=== PATIENT | male | born 1975 | race Caucasian/White ===

== ENCOUNTER → 2018-12-13 | Outpatient (CLI) | payer BC ==
[2018-12-13 15:14] LABS: ANION GAP 11 mmol/L (7-16); BLOOD UREA NITROGEN 13 mg/dL (9-20); CALCIUM 9.3 mg/dL (8.4-10.2); CARBON DIOXIDE 27 mmol/L (22-30); CHLORIDE 98 mmol/L (98-107); CHOLESTEROL 231 mg/dL (120-200); CHOLESTEROL RISK RATIO 9.2; CREATININE, serum 0.68 mg/dL (0.66-1.25); GLUCOSE 286 mg/dL (74-106); HDL CHOLESTEROL 25 mg/dL; POTASSIUM 4.4 mmol/L (3.4-5.0); SODIUM 135 mmol/L (137-145)
[2018-12-13 15:49] LABS: TRIGLYCERIDE 2634 mg/dL
[2018-12-14 03:54] LABS: URINE MICROALBUMIN 31.8 mg/dL (0.0-1.7)
[2018-12-17 09:10] LABS: ALANINE AMINOTRANSFERASE 35 U/L (21-72); AST,SGOT 31 U/L (15-37)
== END ==
LOC: ZCOL.LAB 14:36
PROVIDERS: Family Medicine
DX: E11.9 Type 2 diabetes mellitus without complications (principal)

== ENCOUNTER → 2019-01-17 | Outpatient (CLI) | payer BC ==
[2019-01-17 14:25] LABS: ALANINE AMINOTRANSFERASE 32 U/L (21-72); ALBUMIN 4.5 gm/dL (3.5-5.0); ALKALINE PHOSPHATASE 132 U/L (50-136); ANION GAP 12 mmol/L (7-16); AST,SGOT 27 U/L (15-37); BILIRUBIN,TOTAL 0.5 mg/dL (0.0-1.0); BLOOD UREA NITROGEN 11 mg/dL (9-20); CALCIUM 9.8 mg/dL (8.4-10.2); CARBON DIOXIDE 27 mmol/L (22-30); CHLORIDE 97 mmol/L (98-107); CHOLESTEROL 143 mg/dL (120-200); CREATINE KINASE 39 U/L (55-170); POTASSIUM 4.1 mmol/L (3.4-5.0); SODIUM 137 mmol/L (137-145); TOTAL PROTEIN 7.7 gm/dL (6.4-8.2)
[2019-01-17 14:34] LABS: CHOLESTEROL RISK RATIO 5.1; GLUCOSE 361 mg/dL (74-106)
[2019-01-17 14:37] LABS: TRIGLYCERIDE 684 mg/dL
== END ==
LOC: ZCOL.LAB 11:52
PROVIDERS: Family Medicine
DX: E78.5 Hyperlipidemia, unspecified (principal); E11.9 Type 2 diabetes mellitus without complications; E78.1 Pure hyperglyceridemia

== ENCOUNTER 2019-04-01 18:01 | Emergency (ER) | payer BC ==
[~2019-04-01] VITALS: Ht 170.2 cm; Wt 90.9 kg
[2019-04-01 18:20] VITALS: TEMP 97.7
[2019-04-01] MEDS ORDERED: GLUCOPHAGE1000 MG PO (19:00)
[2019-04-01] MEDS ORDERED: AMARYL1 MG (19:00)
[2019-04-01] MEDS ORDERED: LIPITOR20 MG (19:01)
[2019-04-01] MEDS ORDERED: ZOLOFT20 MG/ML (19:02)
[2019-04-01] MEDS ORDERED: PRINIVIL2.5 MG PO (19:02)
[2019-04-01] MEDS ORDERED: FLEXERIL 1010 MG/TAB PO (21:39)
[2019-04-01 22:00] VITALS: BP 162/92; PULSE 105
== END 2019-04-01 22:00 | disposition home or self-care (01) ==
LOC: COL.ER 18:01
DX: S39.011A Strain of muscle, fascia and tendon of abdomen, initial encounter (principal); S20.212A Contusion of left front wall of thorax, initial encounter; I10 Essential (primary) hypertension; E11.9 Type 2 diabetes mellitus without complications; Z87.891 Personal history of nicotine dependence; Z79.84 Long term (current) use of oral hypoglycemic drugs; V49.9XXA Car occupant (driver) (passenger) injured in unspecified traffic accident, initial encounter
CPT/HCPCS: J1885

== ENCOUNTER → 2019-09-30 | Outpatient (CLI) | payer BC ==
[~2019-09-30] MED LIST: AMARYL1 MG; FLEXERIL 1010 MG/TAB PO; GLUCOPHAGE1000 MG PO; LIPITOR20 MG; PRINIVIL2.5 MG PO; ZOLOFT20 MG/ML
[2019-09-30 11:54] LABS: BASO # 0.1 (0.0-0.2); BASO % 0.8 % (0.0-2.0); EOS # 0.2 (0.0-0.7); EOS % 2.5 % (0-4.0); GRAN # 4.6 (1.4-6.5); HEMATOCRIT 45.7 % (42.0-52.0); HEMOGLOBIN 15.7 g/dl (13.5-18.0); LYMPH # 2.5 (1.2-3.4); LYMPH % 31.6 % (20.0-51.0); MEAN CELL VOLUME 82 fl (80.0-100.0); MEAN CORPUSCULAR HEMOGLOBIN 28 pg (27.0-31.0); MEAN CORPUSCULAR HGB CONC 34 g/dl (33.0-37.0); MEAN PLATELET VOLUME 10.4 fl (7.4-10.4); MONO # 0.5 (0.1-0.6); MONO % 5.8 % (1.7-9.3); PLATELET COUNT 259 K/mm3 (130-400); RED BLOOD COUNT 5.56 M/mm3 (4.20-5.60); REDCELL DISTRIBUTION WIDTH-CV 12.8 % (11.5-14.5)
[2019-09-30 12:08] LABS: ALBUMIN 4.8 gm/dL (3.5-5.0); BILIRUBIN,TOTAL 0.6 mg/dL (0.0-1.0); CALCIUM 9.9 mg/dL (8.4-10.2); CREATININE, serum 0.73 (0.66-1.25); POTASSIUM 4.1 mmol/L (3.4-5.0); TOTAL PROTEIN 8.1 gm/dL (6.4-8.2)
== END ==
LOC: COL.RAD 10:55
PROVIDERS: Family Medicine
DX: E11.9 Type 2 diabetes mellitus without complications (principal); R10.11 Right upper quadrant pain

== ENCOUNTER → 2019-10-01 | Outpatient (CLI) | payer BC ==
[2019-10-01 17:13] LABS: COLLECTION METHOD CLEAN CATCH
[2019-10-01 17:30] LABS: PH 5 (5-8); SQUAMOUS EPITHELIAL None Seen /hpf; URINE APPEARANCE Clear; URINE BACTERIA None Seen /hpf; URINE BILIRUBIN Negative (NEGATIVE); URINE BLOOD Negative (NEGATIVE); URINE COLOR Yellow; URINE GLUCOSE 3+ (NEGATIVE); URINE KETONE Trace (NEGATIVE); URINE LEUKOCYTE ESTERASE Negative (NEGATIVE); URINE NITRATE Negative (NEGATIVE); URINE PROTEIN(semi-quant) 1+ (NEGATIVE); URINE RBC 0-2 /hpf; URINE UROBILINOGEN Negative (NEGATIVE)
== END ==
LOC: ZCOL.LAB 17:08
PROVIDERS: Family Medicine
DX: R10.9 Unspecified abdominal pain (principal)

== ENCOUNTER 2019-10-15 14:53 | Emergency (ER) | payer BC ==
[~2019-10-15] VITALS: Ht 170.2 cm; Wt 86.4 kg
[~2019-10-15 14:53] MED LIST changes: -LIPITOR20 MG; +LIPITOR20 MG PO
[2019-10-15 15:06] VITALS: TEMP 97.5
[2019-10-15] MEDS ORDERED: ZOLOFT 50MG50 MG PO (18:05)
[2019-10-15 18:17] LABS: BASO # 0.1 (0.0-0.2); BASO % 1.1 % (0.0-2.0); EOS # 0.2 (0.0-0.7); GRAN % 65.8 % (42.2-75.2); HEMATOCRIT 44.2 % (42.0-52.0); HEMOGLOBIN 14.8 g/dl (13.5-18.0); LYMPH # 1.9 (1.2-3.4); LYMPH % 25.4 % (20.0-51.0); MEAN CELL VOLUME 83 fl (80.0-100.0); MEAN CORPUSCULAR HEMOGLOBIN 28 pg (27.0-31.0); MEAN CORPUSCULAR HGB CONC 34 g/dl (33.0-37.0); MEAN PLATELET VOLUME 10.8 fl (7.4-10.4); MONO # 0.4 (0.1-0.6); MONO % 5.3 % (1.7-9.3); PLATELET COUNT 222 K/mm3 (130-400); RED BLOOD COUNT 5.35 M/mm3 (4.20-5.60); REDCELL DISTRIBUTION WIDTH-CV 12.9 % (11.5-14.5)
[2019-10-15 18:32] LABS: STREP SCREEN NEGATIVE
[2019-10-15 18:32] LABS: ALANINE AMINOTRANSFERASE 11 U/L (21-72); ALBUMIN 4.5 gm/dL (3.5-5.0); ALKALINE PHOSPHATASE 112 U/L (50-136); ANION GAP 13 mmol/L (7-16); AST,SGOT 20 U/L (15-37); BILIRUBIN,TOTAL 0.6 mg/dL (0.0-1.0); BLOOD UREA NITROGEN 10 mg/dL (9-20); CALCIUM 9.3 mg/dL (8.4-10.2); CARBON DIOXIDE 25 mmol/L (22-30); CHLORIDE 97 mmol/L (98-107); CREATININE, serum 0.63 (0.66-1.25); GLUCOSE 356 mg/dL (74-106); LIPASE 62 U/L (23-300); POTASSIUM 3.8 mmol/L (3.4-5.0); SODIUM 135 mmol/L (137-145); TOTAL PROTEIN 7.8 gm/dL (6.4-8.2)
[2019-10-15 18:33] LABS: C-REACTIVE PROTEIN < 0.5 mg/dL (0.0-0.9)
[2019-10-15 19:19] LABS: COLLECTION METHOD CLEAN CATCH
[2019-10-15 19:34] LABS: PH 7 (5-8); SQUAMOUS EPITHELIAL None Seen /hpf; URINE APPEARANCE Clear; URINE BACTERIA None Seen /hpf; URINE BILIRUBIN Negative (NEGATIVE); URINE BLOOD Negative (NEGATIVE); URINE COLOR Straw; URINE GLUCOSE 3+ (NEGATIVE); URINE KETONE 1+ (NEGATIVE); URINE LEUKOCYTE ESTERASE Negative (NEGATIVE); URINE NITRATE Negative (NEGATIVE); URINE PROTEIN(semi-quant) Negative (NEGATIVE); URINE RBC 0-2 /hpf; URINE UROBILINOGEN Negative (NEGATIVE)
[2019-10-15] MEDS ORDERED: NOVOLOG FLEX100 U/ML SQ (20:16)
[2019-10-15 20:33] VITALS: BP 137/97; PULSE 79
== END 2019-10-15 20:35 | disposition home or self-care (01) ==
LOC: COL.ER 14:53
PROVIDERS: Emergency Medicine
DX: E11.65 Type 2 diabetes mellitus with hyperglycemia (principal); J06.9 Acute upper respiratory infection, unspecified; R10.11 Right upper quadrant pain; Z79.84 Long term (current) use of oral hypoglycemic drugs
CPT/HCPCS: J1815; J1885; J7030

== ENCOUNTER 2020-08-01 19:08 | Emergency (ER) | payer BC ==
[~2020-08-01] VITALS: Ht 170.2 cm; Wt 86.4 kg
[~2020-08-01 19:08] MED LIST changes: +NOVOLOG FLEX100 U/ML SQ; +ZOLOFT 50MG50 MG PO
[2020-08-01 19:16] VITALS: TEMP 97.7
[2020-08-01 20:01] LABS: BASO # 0.1 (0.0-0.2); BASO % 1.1 % (0.0-2.0); EOS # 0.2 (0.0-0.7); EOS % 2.5 % (0-4.0); GRAN # 4.4 (1.4-6.5); HEMATOCRIT 42.6 % (42.0-52.0); HEMOGLOBIN 15.2 g/dl (13.5-18.0); LYMPH # 2.4 (1.2-3.4); LYMPH % 31.8 % (20.0-51.0); MEAN CELL VOLUME 82 fl (80.0-100.0); MEAN CORPUSCULAR HEMOGLOBIN 29 pg (27.0-31.0); MEAN CORPUSCULAR HGB CONC 36 g/dl (33.0-37.0); MEAN PLATELET VOLUME 10.9 fl (7.4-10.4); MONO # 0.5 (0.1-0.6); MONO % 6.3 % (1.7-9.3); PLATELET COUNT 239 K/mm3 (130-400); RED BLOOD COUNT 5.17 M/mm3 (4.20-5.60); REDCELL DISTRIBUTION WIDTH-CV 12.8 % (11.5-14.5)
[2020-08-01 20:03] LABS: COLLECTION METHOD CLEAN CATCH
[2020-08-01 20:08] LABS: PH 5 (5-8); SQUAMOUS EPITHELIAL 0-2 /hpf; URINE APPEARANCE Clear; URINE BACTERIA None Seen /hpf; URINE BILIRUBIN Negative (NEGATIVE); URINE BLOOD Negative (NEGATIVE); URINE COLOR Yellow; URINE GLUCOSE 3+ (NEGATIVE); URINE KETONE 1+ (NEGATIVE); URINE LEUKOCYTE ESTERASE Negative (NEGATIVE); URINE NITRATE Negative (NEGATIVE); URINE PROTEIN(semi-quant) 2+ (NEGATIVE); URINE RBC 0-2 /hpf; URINE UROBILINOGEN Negative (NEGATIVE)
[2020-08-01 20:12] LABS: ALANINE AMINOTRANSFERASE 136 U/L (4-49); ALBUMIN 4.5 gm/dL (3.5-5.0); ALKALINE PHOSPHATASE 152 U/L (50-136); ANION GAP 15 mmol/L (7-16); AST,SGOT 112 U/L (15-37); BILIRUBIN,TOTAL 0.9 mg/dL (0.0-1.0); BLOOD UREA NITROGEN 14 mg/dL (9-20); CALCIUM 9.5 mg/dL (8.4-10.2); CARBON DIOXIDE 20 mmol/L (22-30); CHLORIDE 100 mmol/L (98-107); CREATININE, serum 0.81 (0.66-1.25); GLUCOSE 333 mg/dL (74-106); LIPASE 61 U/L (23-300); POTASSIUM 4.3 mmol/L (3.4-5.0); SODIUM 135 mmol/L (137-145); TOTAL PROTEIN 7.9 gm/dL (6.4-8.2)
[2020-08-01 20:31] LABS: TROPONIN-I < 0.012 ng/mL (0.000-0.035)
[2020-08-01] MEDS ORDERED: PERCOCET 325 MG1 TA2 PO (23:16)
[2020-08-01 23:25] VITALS: BP 172/109; PULSE 88
== END 2020-08-01 23:25 | disposition home or self-care (01) ==
LOC: COL.ER 19:08
PROVIDERS: Physician Assistant
DX: R10.11 Right upper quadrant pain (principal); E11.9 Type 2 diabetes mellitus without complications; Z79.4 Long term (current) use of insulin; Z79.899 Other long term (current) drug therapy; Z79.84 Long term (current) use of oral hypoglycemic drugs
CPT/HCPCS: J1170; J1815; J3010; J7030; Q9967

== ENCOUNTER 2021-11-28 15:03 | Emergency (ER) | payer BC ==
[~2021-11-28] VITALS: Ht 175.3 cm; Wt 84.1 kg
[~2021-11-28 15:03] MED LIST changes: +PERCOCET 325 MG1 TA2 PO
[2021-11-28 16:01] VITALS: BP 159/118; TEMP 98.4
[2021-11-28 16:56] LABS: BASO # 0.1 K/mm3 (0.0-0.2); BASO % 1.1 % (0.0-2.0); EOS # 0.1 K/mm3 (0.0-0.7); EOS % 1.9 % (0.0-4.0); GRAN # 3.8 K/mm3 (1.4-6.5); GRAN % 54.3 % (42.2-75.2); HEMATOCRIT 43.2 % (42.0-52.0); HEMOGLOBIN 15.7 g/dl (13.5-18.0); LYMPH # 2.6 K/mm3 (1.2-3.4); LYMPH % 36.5 % (20.0-51.0); MEAN CELL VOLUME 82 fl (80.0-100.0); MEAN CORPUSCULAR HEMOGLOBIN 30 pg (27-31); MEAN CORPUSCULAR HGB CONC 36 g/dl (33.0-37.0); MEAN PLATELET VOLUME 10.1 fl (7.4-10.4); MONO # 0.4 K/mm3 (0.1-0.6); MONO % 5.9 % (1.7-9.3); PLATELET COUNT 286 K/mm3 (130-400); RED BLOOD COUNT 5.25 M/mm3 (4.20-5.60); REDCELL DISTRIBUTION WIDTH-CV 12.8 % (11.5-14.5)
[2021-11-28 18:11] LABS: ALBUMIN 4.4 gm/dL (3.5-5.0); BILIRUBIN,TOTAL 0.5 mg/dL (0.2-1.2); CALCIUM 9.1 mg/dL (8.4-10.2); CREATININE, serum 0.82 mg/dL (0.72-1.25); POTASSIUM 3.8 mmol/L (3.5-4.5); TOTAL PROTEIN 7.4 gm/dL (6.2-8.1)
[2021-11-28] MEDS ORDERED: FLEXERIL 1010 MG/TAB PO (18:59)
[2021-11-28 19:05] VITALS: PULSE 85
== END 2021-11-28 19:05 | disposition home or self-care (01) ==
LOC: COL.ER 15:03
PROVIDERS: Emergency Medicine; Physician Assistant
DX: M79.602 Pain in left arm (principal); M25.552 Pain in left hip; M54.9 Dorsalgia, unspecified; R51.9 Headache, unspecified; E11.9 Type 2 diabetes mellitus without complications; I10 Essential (primary) hypertension; Z79.84 Long term (current) use of oral hypoglycemic drugs; Z79.4 Long term (current) use of insulin; Z79.899 Other long term (current) drug therapy
CPT/HCPCS: J1790; J1885; J2360